=== PATIENT | female | born 1975 | race Caucasian/White ===

== ENCOUNTER 2016-07-20 16:01 | Emergency (ER) | payer MEDICARE, OTHER ==
[~2016-07-20] VITALS: Ht 162.6 cm; Wt 60.0 kg
[~2016-07-20 16:01] MED LIST: ADDE10 PO; CLON.1 PO; LEVO.05 PO; LORA-474 PO; LORA.5 PO; MIRTA15 PO; PRAZ1 PO; PROZ20CA11 PO
[2016-07-20 16:03] VITALS: BP 135/104; PULSE 118; RESP 20; TEMP 98; O2SAT 98
== END 2016-07-20 18:37 | disposition left against medical advice (07) ==
LOC: NED 16:01
DX: R68.89 Other general symptoms and signs (principal)
CPT/HCPCS: 99281

== ENCOUNTER 2016-08-08 10:37 | Emergency (ER) | payer MEDICARE ==
[~2016-08-08] VITALS: Ht 170.2 cm; Wt 56.8 kg
[2016-08-08 10:43] VITALS: BP 142/86; PULSE 91; RESP 20; TEMP 97.4; O2SAT 94
[2016-08-08] MEDS ORDERED: GABA600T PO (11:00)
--- NOTE | 2016-08-08 11:25 | PD ---
HPI Chief Complaint: Skin Problem Time Seen by Provider: 11:25 Travel History International Travel<30 days: No Contact w/Intl Traveler<30days: No Traveled to known affect area: No History of Present Illness HPI 41-year-old female with a history of PTSD and bipolar disorder presents to the emergency department for evaluation of pruritic skin lesions that she believes are bugs burrowed into her skin. She states this has been going on for about 2 weeks. States she has a few lesions on her ankles, feet, one on her back and in her ears. States she was seen at [facility] last week for same and prescribed antibiotics which she is unsure of the name, states she did finish the prescription but her symptoms persisted. She states over the past 2 days she has felt dizzy as though she can't keep her balance. Denies fever, chills, nausea, vomiting, weakness, chest pain, shortness of breath, cough or cold symptoms. She states her boyfriend had a flea infestation about 2 weeks ago when this all started and she thinks she has lyme disease as a result. Denies , last menstrual period 4 days ago. Denies drug use. Admits to occasional alcohol use. No other complaints. PFSH Past Medical History Depression: Yes Cancer: No Cardiovascular Problems: No Diabetes: No Headaches: Yes Psychiatric: Yes (PTSD, Depression) Seizures: No Tetanus Vaccination: < 5 Years Influenza Vaccination: No ?: Not LMP: 08/08/2016 : 1 Para: 0 Miscarriage: 1 Tubal Ligation: Yes Past Surgical History Other Surgery: Yes (MASTOID REPLACEMENT ) Social History Alcohol Use: Yes (OCCASIONALLY) Tobacco Use: Yes (1/2 PPD) Substance Use: No (DENIES PER PT) Allergies-Medications (Allergen,Severity, Reaction): Coded Allergies: Depakote (Verified Allergy, Severe, 07/20/16) [place] (Verified Allergy, Severe, 07/20/16) Reported Meds & Prescriptions Reported Meds & Active Scripts Active Reported Gabapentin 600 Mg Tab 600 Mg PO TID Review of Systems Except as stated in HPI: all other systems reviewed are Neg Physical Exam Narrative GENERAL: Well-nourished and well-developed female patient in no acute distress. SKIN: Warm and dry. Few scattered lesions on legs, arms and back. No erythema , warmth, discharge or drainage. There is a lesion on her umbilicus that has caused a little swelling of the tissue. HEAD: Normocephalic and atraumatic. EYES: No injection, drainage, or hyphema noted. PERRLA. EOMI. ENT: There is a lesion to the superior right pinna with crusting. There is a small bump to the right external auditory canal. Left ear and external auditory canal is within normal limits. Bilateral tympanic membranes with effusion, patient reports chronic otitis media. No nasal drainage noted. Oropharynx is clear. NECK: Supple and the trachea is midline. CARDIOVASCULAR: Regular rate and rhythm. RESPIRATORY: Breath sounds are equal bilaterally with no accessory muscle use, wheezing, rhonchi, or crackles. GASTROINTESTINAL: Abdomen is soft, non-tender, and nondistended. MUSCULOSKELETAL: No obvious deformities, swelling, cyanosis, or ecchymosis is present throughout the upper and lower extremities. Patient has full range of motion without any signs of neurovascular compromise. NEUROLOGICAL: Awake, alert, and oriented. Normal speech and gait. Cranial nerves are grossly intact. Data Data Last Documented VS Vital Signs Date Time Temp Pulse Resp B/P Pulse Ox O2 Delivery O2 Flow Rate FiO2 08/08/16 10:52 22 08/08/16 10:43 97.4 91 142/86 94 Orders Complete Blood Count With Diff (08/08/16 11:23) Comprehensive Metabolic Panel (08/08/16 11:23) Urinalysis - C+S If Indicated (08/08/16 11:23) Ed Urine Pregnancytest Poc (08/08/16 11:23) Electrocardiogram (08/08/16 11:23) Psych Screen (08/08/16 11:23) Drug Screen, Random Urine (08/08/16 11:23) Alcohol (Ethanol) (08/08/16 11:23) MDM Medical Decision Making Medical Screen Exam Complete: Yes Emergency Medical Condition: Yes Differential Diagnosis Insect bites versus substance abuse versus dehydration versus electrolyte abnormality versus psychosis Narrative Course 41-year-old female with a psychiatric history presents to the emergency department for evaluation of skin lesions scattered throughout her body and dizziness. Patient is afebrile, vital signs are stable. She is very concerned that people think she is "crazy" and she is imagining the bugs. She is not suicidal or homicidal though I do think this may be in large part psychological and therefore a psych screen is ordered. IV access is obtained, labs have been drawn and sent. These skin lesions do not appear to be cellulitic or tick bites. I did explain to the patient that fleas do not cause Lyme disease and that has she has not had a tick on her and is not at risk for having a tick on her that it is highly unlikely she has Lyme disease. The patient did not wish to stay for any further testing, she was very fixated on wanting to be tested for Lyme disease no matter how much I explained to her the low likelihood of her having this disease and that we do not test for it in the emergency department. We did draw blood work but the patient left AGAINST MEDICAL ADVICE before obtaining urine or any EKG or psych screen. She is not a harm to herself or anyone else and therefore I did not feel she met Trevino act criteria. AMA: The risks of leaving against medical advice without further evaluation treatment were discussed with the patient. These risks include cardiac dysfunction, cardiac dysrhythmia, possible heart attack, possible stroke or . The patient indicated understanding of these risks and appeared to have the capacity to make this decision. Diagnosis Primary Impression: Left against medical advice Additional Impression: Skin lesions Disposition: 07 AGAINST MEDICAL ADVICE Irina Krueger Aug 08, 2016 11:25
[2016-08-08 12:04] LABS: AUTOMATED NEUTROPHIL # 4.6 TH/MM3 (1.8-7.7); BASOPHIL % 0.7 % (0.0-2.0); EOSINOPHIL % 0.7 % (0.0-4.0); HEMATOCRIT 41.2 % (35.0-46.0); HEMO FLAGS DIFF FINAL; LYMPH % 24.7 % (9.0-44.0); LYMPHOCYTE # 1.7 TH/MM3 (1.0-4.8); MEAN CELL VOLUME 91.2 FL (80.0-100.0); MEAN CORPUSCULAR HEMOGLOBIN 29.6 PG (27.0-34.0); MEAN CORPUSCULAR HGB CONC 32.5 % (32.0-36.0); MONO % 7.6 % (0.0-8.0); NEUT % 66.3 % (16.0-70.0); PLATELET COUNT 294 TH/MM3 (150-450); RED BLOOD COUNT 4.51 MIL/MM3 (4.00-5.30); RED CELL DISTRIBUTION WIDTH 14.9 % (11.6-17.2); WHITE BLOOD COUNT 6.9 TH/MM3 (4.0-11.0)
[2016-08-08 12:28] LABS: ALKALINE PHOSPHATASE 81 U/L (45-117); ALT (GPT) 31 U/L (10-53); ANION GAP 8 MEQ/L (5-15); AST (GOT) 23 U/L (15-37); BICARBONATE 25.9 MEQ/L (21.0-32.0); BLOOD UREA NITROGEN 9 MG/DL (7-18); CHLORIDE 104 MEQ/L (98-107); GLOMERULAR FILTRATION RATE 71 ML/MIN (>89); POTASSIUM 3.8 MEQ/L (3.5-5.1); SODIUM (NA) 138 MEQ/L (136-145); TOTAL BILIRUBIN ADULT 0.2 MG/DL (0.2-1.0)
== END 2016-08-08 11:59 | disposition left against medical advice (07) ==
LOC: NEPA 10:37
DX: L98.9 Disorder of the skin and subcutaneous tissue, unspecified (principal); R42 Dizziness and giddiness
CPT/HCPCS: 80053; 80320; 85025; 99283

== ENCOUNTER 2016-09-03 14:08 | Emergency (ER) | payer MEDICARE ==
[~2016-09-03] VITALS: Ht 170.2 cm; Wt 59.0 kg
[~2016-09-03 14:08] MED LIST changes: -ADDE10 PO; -CLON.1 PO; +GABA600T PO; -LEVO.05 PO; -LORA-474 PO; -LORA.5 PO; -MIRTA15 PO; -PRAZ1 PO; -PROZ20CA11 PO
[2016-09-03 14:09] VITALS: BP 137/72; PULSE 96; RESP 20; TEMP 97.8; O2SAT 97
--- NOTE | 2016-09-03 15:25 | PD ---
HPI Chief Complaint: Injury Time Seen by Provider: 15:21 Travel History International Travel<30 days: No Contact w/Intl Traveler<30days: No Traveled to known affect area: No History of Present Illness HPI 41-year-old female presents to the emergency department for evaluation of left ankle and left foot pain that occurred yesterday. She states she was standing at the top of 3 steps and 70 else pulling on her right leg. She states that because of this, her left leg buckled causing her left ankle and knee pain. Patient has been ambulatory since this occurred. She does report a history of fibromyalgia and takes gabapentin. She states that she had leftover Lortab at her house that she took 2 of these this morning at 5 AM. Patient is requesting further narcotics at this time. Patient denies any head injury or LOC. She denies any other complaints. PFSH Past Medical History Hx Anticoagulant Therapy: No Depression: Yes Cancer: No Cardiovascular Problems: No Chemotherapy: No Cerebrovascular Accident: No Diabetes: No Headaches: Yes Psychiatric: Yes (PTSD, Depression) Respiratory: No Seizures: No ?: Unknown LMP: 07/15/16 : 1 Para: 0 Miscarriage: 1 Tubal Ligation: Yes Past Surgical History Hysterectomy: No Other Surgery: Yes (MASTOID REPLACEMENT ) Social History Alcohol Use: Yes (OCCASIONALLY) Tobacco Use: Yes (1/2 PPD) Substance Use: No (DENIES PER PT) Allergies-Medications (Allergen,Severity, Reaction): Coded Allergies: Depakote (Verified Allergy, Severe, 09/03/16) [place] (Verified Allergy, Severe, 09/03/16) Reported Meds & Prescriptions Reported Meds & Active Scripts Active Reported Gabapentin 600 Mg Tab 600 Mg PO TID Review of Systems Except as stated in HPI: all other systems reviewed are Neg Physical Exam Narrative GENERAL: Well-developed well-nourished female patient, afebrile. SKIN: Warm and dry HEAD: Normocephalic. Atraumatic. EYES: No scleral icterus. No injection or drainage. NECK: Supple, trachea midline. No JVD or lymphadenopathy. CARDIOVASCULAR: Regular rate and rhythm without murmurs, gallops, or rubs. Left pedal pulses 2+. RESPIRATORY: Breath sounds equal bilaterally. No accessory muscle use. Lungs sounds are clear to auscultation. GASTROINTESTINAL: Abdomen soft, non-tender, nondistended. MUSCULOSKELETAL: No cyanosis, or edema. Patient has tenderness over the entire left ankle and entire left knee. She has reduced range of motion due to pain. She has full sensation to distal left lower extremity. Negative Hill's test. Negative Karen's test. BACK: Nontender without obvious deformity. No CVA tenderness. Data Data Last Documented VS Vital Signs Date Time Temp Pulse Resp B/P Pulse Ox O2 Delivery O2 Flow Rate FiO2 09/03/16 14:09 97.8 96 20 137/72 97 Room Air Orders Ankle, Complete ([id number]) (09/03/16 ) Knee, Complete (4vws) (09/03/16 ) Ibuprofen (Motrin) (09/03/16 15:30) MDM Medical Decision Making Medical Screen Exam Complete: Yes Emergency Medical Condition: Yes Medical Record Reviewed: Yes Interpretation(s) x-ray left knee - CONCLUSION: Joint effusion with possible early changes of osteoarthritis. No acute bony abnormality. x-ray left ankle - CONCLUSION: 1. No acute bony abnormality. Differential Diagnosis Fracture versus sprain versus contusion Narrative Course 41-year-old female presents to the emergency department for evaluation of left ankle and left knee pain after injury yesterday. Patient is requesting narcotics after taking 2 left over Lortab this morning. Patient is given ibuprofen 800 mg by mouth. X-ray of the left ankle and left knee are ordered and pending. X-ray of the left knee shows a joint effusion, no acute bony abnormality. X- ray of the left ankle shows no acute bony abnormality. Patient is given Leonel bandage her ankle and knee. She is also given crutches. She is instructed to follow-up with an orthopedist if pain continues or worsens. Patient is agreeable to this plan. Diagnosis Primary Impression: Left ankle sprain Qualified Code: S93.402A - Sprain of left ankle, unspecified ligament, initial encounter Additional Impression: Left knee sprain Qualified Code: S83.92XA - Sprain of left knee, unspecified ligament, initial encounter Referrals: Primary Care Physician call for appointment Patient Instructions: Ankle Sprain (ED), General Instructions, Knee Sprain (ED) Additional Instructions: Take ibuprofen as directed as needed with food for pain. Wear Leonel bandage as needed for support. Crutches as needed. Follow-up with an orthopedist if pain continues or worsens. Return to the emergency department for any acute worsening of symptoms. Med/Other Pt SpecificInfo: Prescription(s) given Scripts Ibuprofen 800 Mg [id number] Mg PO TID PRN (PAIN SCALE 1 TO 10) #21 TAB Ref 0 Prov:Seema Hayes 09/03/16 Disposition: 01 DISCHARGE HOME Condition: Stable Seema Hayes Sep 03, 2016 15:25
[2016-09-03] MEDS ORDERED: IBUPROFEN 800 MG TAB PO ONE (15:30)
--- NOTE | 2016-09-03 16:08 | RADRPT ---
EXAM DATE/TIME: 09/03/2016 15:48 [facility] COMPARISON: No previous studies available for comparison. INDICATIONS : Left knee pain. MEDICAL HISTORY : None. SURGICAL HISTORY : None. ENCOUNTER: Initial ACUITY: 1 day PAIN SCORE: 0/10 LOCATION: Left knee FINDINGS: There is a small joint effusion. Early changes of osteoarthritis. No acute bony abnormality. CONCLUSION: Joint effusion with possible early changes of osteoarthritis. No acute bony abnormality. Brad Cespedes MD on September 03, 2016 at 16:05 Board Certified Radiologist. This report was verified electronically.
--- NOTE | 2016-09-03 16:09 | RADRPT ---
EXAM DATE/TIME: 09/03/2016 15:50 [facility] COMPARISON: No previous studies available for comparison. INDICATIONS : Left ankle pain. MEDICAL HISTORY : None. SURGICAL HISTORY : None. ENCOUNTER: Initial ACUITY: 1 day PAIN SCORE: 0/10 LOCATION: Left ankle FINDINGS: Three view exam was performed of the left ankle. The bony structures are in normal alignment. No ev idence of fracture, dislocation, or soft tissue swelling. The ankle mortise is intact. No radiopaqu e foreign bodies are seen. Bony mineralization is normal. CONCLUSION: 1. No acute bony abnormality. Brad Cespedes MD on September 03, 2016 at 16:06 Board Certified Radiologist. This report was verified electronically.
[2016-09-03] MEDS ORDERED: IBUP800T23 PO (16:24)
== END 2016-09-03 16:57 | disposition home or self-care (01) ==
LOC: NEPB 14:08
DX: S93.402A Sprain of unspecified ligament of left ankle, initial encounter (principal); M79.7 Fibromyalgia; F17.210 Nicotine dependence, cigarettes, uncomplicated; S83.92XA Sprain of unspecified site of left knee, initial encounter; X58.XXXA Exposure to other specified factors, initial encounter
CPT/HCPCS: 73564; 73610; 99283; E0113

== ENCOUNTER 2016-12-22 07:55 | Emergency (ER) | payer MEDICARE, OTHER ==
[~2016-12-22 07:55] MED LIST changes: +IBUP800T23 PO
--- NOTE | 2016-12-22 08:13 | PD ---
HPI Chief Complaint: medical clearance Time Seen by Provider: 08:02 Travel History International Travel<30 days: No Contact w/Intl Traveler<30days: No Traveled to known affect area: No History of Present Illness HPI This patient is brought in by police records clerk to be evaluated. Patient apparently was found walking around and shallow water. She says she was looking for frogs. She denies intentionally jumping off the bridge to hurt herself. No one witnessed her prior to that. She says she feels fine and does not want to be here. She denies suicidal ideation. She had a warned for her so police have arrested her going to take her to custodial when she is medically clear. Symptom is a nonexistent. She is very irritable and refuses most questions and refuses any medical testing. She denies alcohol or drug use PFSH Past Medical History Hx Anticoagulant Therapy: No Depression: Yes Cancer: No Cardiovascular Problems: No Chemotherapy: No Cerebrovascular Accident: No Diabetes: No Headaches: Yes Psychiatric: Yes (PTSD, Depression) Respiratory: No Seizures: No : 1 Para: 0 Miscarriage: 1 Tubal Ligation: Yes Past Surgical History Hysterectomy: No Other Surgery: Yes (MASTOID REPLACEMENT ) Social History Alcohol Use: Yes (OCCASIONALLY) Tobacco Use: Yes (1/2 PPD) Substance Use: No (DENIES PER PT) Allergies-Medications (Allergen,Severity, Reaction): Coded Allergies: Depakote (Verified Allergy, Severe, 09/03/16) [place] (Verified Allergy, Severe, 09/03/16) Reported Meds & Prescriptions Reported Meds & Active Scripts Active Ibuprofen 800 Mg Tab 800 Mg PO TID PRN Reported Gabapentin 600 Mg Tab 600 Mg PO TID Review of Systems General / Constitutional: No: Fever Eyes: No: Visual changes HENT: No: Headaches Cardiovascular: No: Chest Pain or Discomfort Respiratory: No: Shortness of Breath Gastrointestinal: No: Abdominal Pain Genitourinary: No: Dysuria Musculoskeletal: No: Pain Skin: No Rash Neurologic: No: Weakness Psychiatric: No: Depression Endocrine: No: Polydipsia Hematologic/Lymphatic: No: Easy Bruising Physical Exam Narrative GENERAL: Thin well-developed patient who looks annoyed argumentative . SKIN: Focused skin assessment reveals no rash and nodules. Skin is Warm and dry. HEAD: Atraumatic. Normocephalic. EYES: Pupils equal and round. No scleral icterus. No injection or drainage. ENT: No nasal bleeding or discharge. Mucous membranes pink and moist. NECK: Trachea midline. No JVD. CARDIOVASCULAR: Regular rate and rhythm. No murmur appreciated. RESPIRATORY: No accessory muscle use. Clear to auscultation. Breath sounds equal bilaterally. GASTROINTESTINAL: Abdomen soft, non-tender, nondistended. Hepatic and splenic margins not palpable. MUSCULOSKELETAL: No obvious deformities. No clubbing. No cyanosis. No edema. Abrasions to left lower leg without bony tenderness NEUROLOGICAL: Awake and alert. No obvious cranial nerve deficits. Motor grossly within normal limits. Normal speech. PSYCHIATRIC: Aggravated/hostile mood and affect; insight and judgment questionable MDM Medical Decision Making Medical Screen Exam Complete: Yes Emergency Medical Condition: Yes Medical Record Reviewed: Yes Differential Diagnosis Abrasions, personality disorder, contusion Narrative Course I have reviewed the patient's electronic medical record. Patient refuses any testing and has no complaint. She denies any suicidal ideation or hallucination Patient was taken to custodial by police Diagnosis Primary Impression: Medical clearance for incarceration Additional Instructions: taken to custodial Disposition: [address] LAW ENFORCEMNT Condition: Stable Donnell Robin MD Dec 22, 2016 08:13
== END 2016-12-22 08:16 ==
LOC: NEPC 07:55
DX: F43.10 Post-traumatic stress disorder, unspecified (principal); F17.200 Nicotine dependence, unspecified, uncomplicated; Z79.1 Long term (current) use of non-steroidal anti-inflammatories (NSAID); Z79.899 Other long term (current) drug therapy; Z88.5 Allergy status to narcotic agent
CPT/HCPCS: 99281

== ENCOUNTER 2017-01-15 11:06 | Emergency (ER) | payer MEDICARE, OTHER ==
[~2017-01-15] VITALS: Ht 170.2 cm; Wt 57.0 kg
[2017-01-15 11:07] VITALS: BP 137/99; PULSE 101; RESP 15; TEMP 98.2; O2SAT 98
--- NOTE | 2017-01-15 12:07 | PD ---
HPI Chief Complaint: Medical Clearance Time Seen by Provider: 12:05 Travel History International Travel<30 days: No Contact w/Intl Traveler<30days: No Traveled to known affect area: No History of Present Illness HPI 41-year-old female that presents to the ED for eval a psychiatric evaluation. Patient reports that she comes here voluntarily for evaluation of this. Per patient she's been off her medications for sometime and she feels like she needs to be back on them. She states that she has a history of bipolar disorder. Patient was seen here last month for evaluation of similar but at the time she was going to longterm and she declined any treatment. She denies any other medical issues. No suicidal or homicidal ideation. She does tell me that she does have a history of substance abuse and unclear she's been using recently. She denies any fevers chills or sweats. No chest pain or shortness of breath. No head injury. She states that she has been walking a lot and she has abrasions on her skin everywhere, but especially on the legs. PFSH Past Medical History Hx Anticoagulant Therapy: No ADD: Yes Anxiety: Yes Depression: Yes Cancer: No Cardiovascular Problems: No Chemotherapy: No Cerebrovascular Accident: No Diabetes: No Headaches: Yes Psychiatric: Yes (ADD, depression, anxiety, anger management) Respiratory: No Seizures: No Tetanus Vaccination: Unknown ?: Not LMP: 10/2016 : 1 Para: 0 Miscarriage: 1 Tubal Ligation: Yes Past Surgical History Ear Surgery: Yes Hysterectomy: No Other Surgery: Yes (MASTOID REPLACEMENT ) Social History Alcohol Use: Yes Tobacco Use: Yes Substance Use: Yes Allergies-Medications (Allergen,Severity, Reaction): Coded Allergies: Depakote (Verified Allergy, Severe, 01/15/17) [place] (Verified Allergy, Severe, 01/15/17) Cipro (Verified Allergy, Unknown, 01/15/17) Reported Meds & Prescriptions Reported Meds & Active Scripts Active No Active Prescriptions or Reported Medications Review of Systems Except as stated in HPI: all other systems reviewed are Neg Physical Exam Narrative GENERAL: SKIN: Warm and dry. HEAD: Atraumatic. Normocephalic. EYES: Pupils equal and round. No scleral icterus. No injection or drainage. ENT: No nasal bleeding or discharge. Mucous membranes pink and moist. Tongue is midline. No uvula deviation. NECK: Trachea midline. No JVD. CARDIOVASCULAR: Regular rate and rhythm. No murmurs, S3, S4. RESPIRATORY: No accessory muscle use. Clear to auscultation. Breath sounds equal bilaterally. GASTROINTESTINAL: Abdomen soft, non-tender, nondistended. Hepatic and splenic margins not palpable. MUSCULOSKELETAL: Extremities without clubbing, cyanosis, or edema. No obvious deformities. Full range of motion of the upper and lower extremities bilaterally. 2+ pulses bilaterally. NEUROLOGICAL: Awake and alert. No obvious cranial nerve deficits. Motor grossly within normal limits. Five out of 5 muscle strength in the arms and legs. Normal speech. PSYCHIATRIC: Appropriate mood and affect; insight and judgment normal. Data Data Last Documented VS Vital Signs Date Time Temp Pulse Resp B/P Pulse Ox O2 Delivery O2 Flow Rate FiO2 01/15/17 11:16 18 01/15/17 11:07 98.2 101 137/99 98 Orders Complete Blood Count With Diff (01/15/17 11:12) Comprehensive Metabolic Panel (01/15/17 11:12) Psych Screen (01/15/17 11:12) Drug Screen, Random Urine (01/15/17 11:12) Alcohol (Ethanol) (01/15/17 11:12) Labs Laboratory Tests Test 01/15/17 11:45 White Blood Count 9.5 TH/MM3 Red Blood Count 4.38 MIL/MM3 Hemoglobin 13.5 GM/DL Hematocrit 41.0 % Mean Corpuscular Volume 93.6 FL Mean Corpuscular Hemoglobin 30.8 PG Mean Corpuscular Hemoglobin 32.9 % Concent Red Cell Distribution Width 16.6 % Platelet Count 291 TH/MM3 Mean Platelet Volume 7.4 FL Neutrophils (%) (Auto) 64.8 % Lymphocytes (%) (Auto) 25.6 % Monocytes (%) (Auto) 7.9 % Eosinophils (%) (Auto) 1.1 % Basophils (%) (Auto) 0.6 % Neutrophils # (Auto) 6.2 TH/MM3 Lymphocytes # (Auto) 2.4 TH/MM3 Monocytes # (Auto) 0.8 TH/MM3 Eosinophils # (Auto) 0.1 TH/MM3 Basophils # (Auto) 0.1 TH/MM3 CBC Comment DIFF FINAL Differential Comment Sodium Level 144 MEQ/L Potassium Level 3.6 MEQ/L Chloride Level 108 MEQ/L Carbon Dioxide Level 27.3 MEQ/L Anion Gap 9 MEQ/L Blood Urea Nitrogen 12 MG/DL Creatinine 0.78 MG/DL Estimat Glomerular Filtration 82 ML/MIN Rate Random Glucose 93 MG/DL Calcium Level 9.1 MG/DL Total Bilirubin 0.8 MG/DL Aspartate Amino Transf 13 U/L (AST/SGOT) Alanine Aminotransferase 21 U/L (ALT/SGPT) Alkaline Phosphatase 79 U/L Total Protein 7.0 GM/DL Albumin 3.8 GM/DL Urine Opiates Screen NEG Urine Barbiturates Screen NEG Urine Amphetamines Screen POS Urine Benzodiazepines Screen NEG Urine Cocaine Screen NEG Urine Cannabinoids Screen NEG Ethyl Alcohol Level LESS THAN 3 MG/DL MDM Medical Decision Making Medical Screen Exam Complete: Yes Emergency Medical Condition: Yes Medical Record Reviewed: Yes Interpretation(s) CBC & BMP Diagram 01/15/17 11:45 LFTS WNL tox positive for amphetamines Differential Diagnosis Depression versus suicidal ideation versus anxiety versus adjustment disorder versus mood disorder versus bipolar disorder versus schizophrenia versus paranoid disorder versus psychosis versus substance abuse versus alcohol abuse versus alcohol induced psychosis versus homicidality addition versus cutting versus personality disorder Narrative Course 41-year-old female that presents to the ED for evaluation of psych. Patient was properly examined and was found to have signs and symptoms consistent with psychiatric illness. No sign of acute medical distress. Labs will be drawn. Patient will be medically clear. Okay to be seen by psych. Mental health screening was discussed with the patient. Diagnosis Primary Impression: Mood disorder Scripts No Active Prescriptions or Reported Meds Kyler Uribe Jan 15, 2017 12:07
[2017-01-15 12:14] LABS: AUTOMATED NEUTROPHIL # 6.2 TH/MM3 (1.8-7.7); BASOPHIL # 0.1 TH/MM3 (0-0.2); BASOPHIL % 0.6 % (0.0-2.0); EOSINOPHIL # 0.1 TH/MM3 (0-0.4); EOSINOPHIL % 1.1 % (0.0-4.0); HEMO FLAGS DIFF FINAL; LYMPH % 25.6 % (9.0-44.0); LYMPHOCYTE # 2.4 TH/MM3 (1.0-4.8); MEAN CELL VOLUME 93.6 FL (80.0-100.0); MEAN CORPUSCULAR HEMOGLOBIN 30.8 PG (27.0-34.0); MEAN CORPUSCULAR HGB CONC 32.9 % (32.0-36.0); MONO % 7.9 % (0.0-8.0); NEUT % 64.8 % (16.0-70.0); PLATELET COUNT 291 TH/MM3 (150-450); RED BLOOD COUNT 4.38 MIL/MM3 (4.00-5.30); RED CELL DISTRIBUTION WIDTH 16.6 % (11.6-17.2); WHITE BLOOD COUNT 9.5 TH/MM3 (4.0-11.0)
[2017-01-15 12:24] LABS: AMPHETAMINE, URINE POS (NEG); BARBITURATES, URINE NEG (NEG); COCAINE, URINE NEG (NEG)
[2017-01-15 12:35] LABS: ANION GAP 9 MEQ/L (5-15); AST (GOT) 13 U/L (15-37); BICARBONATE 27.3 MEQ/L (21.0-32.0); BLOOD UREA NITROGEN 12 MG/DL (7-18); CHLORIDE 108 MEQ/L (98-107); GLOMERULAR FILTRATION RATE 82 ML/MIN (>89); POTASSIUM 3.6 MEQ/L (3.5-5.1); SODIUM (NA) 144 MEQ/L (136-145)
[2017-01-15 12:43] LABS: ALKALINE PHOSPHATASE 79 U/L (45-117); ALT (GPT) 21 U/L (10-53); TOTAL BILIRUBIN ADULT 0.8 MG/DL (0.2-1.0)
== END 2017-01-15 16:58 | disposition home or self-care (01) ==
LOC: NEPC 11:06
DX: F39 Unspecified mood [affective] disorder (principal); Z79.899 Other long term (current) drug therapy
CPT/HCPCS: 80053; 80307; 85025; 99283

== ENCOUNTER 2017-01-16 18:28 | Inpatient (IN) | payer MEDICARE, OTHER ==
[~2017-01-16] VITALS: Ht 170.2 cm; Wt 52.9 kg
[2017-01-16 18:55] VITALS: BP 132/86; PULSE 92; RESP 18; TEMP 97.8; O2SAT 100
--- NOTE | 2017-01-16 19:25 | PD ---
HPI Chief Complaint: Suicide Ideation/Attempt Time Seen by Provider: 19:20 Travel History International Travel<30 days: No Contact w/Intl Traveler<30days: No Traveled to known affect area: No History of Present Illness HPI Patient comes back to the emergency Department under [place] by police for suicidal ideations. Patient was reportedly found in the street by some bystander said she sat there to intentionally harm her self per Trev[place] act. Patient is not wanting to answer questions, but states she does not want to hurt anyone else intentionally. Patient is being very uncooperative thus limiting H&P at this time. PFSH Past Medical History Hx Anticoagulant Therapy: No ADD: Yes Anxiety: Yes Depression: Yes Cancer: No Cardiovascular Problems: No Chemotherapy: No Cerebrovascular Accident: No Diabetes: No Headaches: Yes Medical other: Yes (HISTORY OBTAINED FROM NOTES, PT UNRELIABLE) Psychiatric: Yes (ADD, depression, anxiety, anger management) Respiratory: No Immunizations Current: Yes Seizures: No ?: Unknown : 1 Para: 0 Miscarriage: 1 Tubal Ligation: Yes Past Surgical History Ear Surgery: Yes Hysterectomy: No Other Surgery: Yes (MASTOID REPLACEMENT ) Social History Alcohol Use: Yes (DENIES) Tobacco Use: Yes (DENIES) Substance Use: Yes (DENIES) Allergies-Medications (Allergen,Severity, Reaction): Coded Allergies: Depakote (Verified Allergy, Severe, 01/15/17) [place] (Verified Allergy, Severe, 01/15/17) Cipro (Verified Allergy, Unknown, 01/15/17) Reported Meds & Prescriptions Reported Meds & Active Scripts Active Active Prescriptions or Reported Medications Unobtainable Review of Systems ROS Limitations: Uncooperative Except as stated in HPI: all other systems reviewed are Neg Physical Exam Exam Limitations: Uncooperative Narrative GENERAL: Well-developed, well nourished, in no acute distress, and non-ill appearing. SKIN: Focused skin assessment warm and dry. HEAD: Atraumatic. Normocephalic. EYES: Pupils equal and round. EOMI. No scleral icterus. No injection or drainage. ENT: No nasal bleeding or discharge. Mucous membranes pink and moist. NECK: Trachea midline. Supple. No nuclear rigidity. RESPIRATORY: No accessory muscle use. No respiratory distress. MUSCULOSKELETAL: No obvious deformities. No clubbing. No cyanosis. No edema. Full range of motion. NEUROLOGICAL: Awake and alert. No obvious cranial nerve deficits. Motor grossly within normal limits. Normal speech. PSYCHIATRIC: Uncooperative. Data Data Last Documented VS Vital Signs Date Time Temp Pulse Resp B/P Pulse Ox O2 Delivery O2 Flow Rate FiO2 01/17/17 07:07 97.8 70 14 110/80 100 Room Air Orders Diet Regular Basic (01/17/17 Breakfast) Complete Blood Count With Diff (01/17/17 13:02) Comprehensive Metabolic Panel (01/17/17 13:02) Urinalysis - C+S If Indicated (01/17/17 13:02) Ed Urine Pregnancytest Poc (01/17/17 13:02) Drug Screen, Random Urine (01/17/17 13:02) Alcohol (Ethanol) (01/17/17 13:02) Salicylates (Aspirin) (01/17/17 13:02) Tylenol (Acetaminophen) (01/17/17 13:02) MDM Medical Decision Making Medical Screen Exam Complete: Yes Emergency Medical Condition: Yes Medical Record Reviewed: Yes Differential Diagnosis Homicidal, suicidal, depression, nonspecific mood disorder, other Narrative Course Patient was seen and examined. Labs were reviewed from yesterday and I do not see need to repeat them at this point in time. Patient medically cleared for further treatment and evaluation by psych. Final disposition per psych. 01/17/17 1300 is asked by personnel research psychologistGENE Stout to order labs on patient. Lab orders were placed. Diagnosis Primary Impression: Medical clearance for psychiatric admission Scripts Unable to Obtain Active Prescriptions or Reported Meds Condition: Stable Andrew Perez Jan 16, 2017 19:25
[2017-01-17 02:21] VITALS: BP 118/85; PULSE 62; RESP 14; TEMP 97.8; O2SAT 100
[2017-01-17 07:07] VITALS: BP 110/80; PULSE 70; RESP 14; TEMP 97.8; O2SAT 100
[2017-01-17 14:48] LABS: AUTOMATED NEUTROPHIL # 6.2 TH/MM3 (1.8-7.7); BASOPHIL # 0.1 TH/MM3 (0-0.2); BASOPHIL % 0.6 % (0.0-2.0); EOSINOPHIL # 0.5 TH/MM3 (0-0.4); EOSINOPHIL % 5.3 % (0.0-4.0); HEMATOCRIT 42.2 % (35.0-46.0); HEMO FLAGS DIFF FINAL; LYMPH % 20.2 % (9.0-44.0); LYMPHOCYTE # 1.9 TH/MM3 (1.0-4.8); MEAN CELL VOLUME 94.4 FL (80.0-100.0); MEAN CORPUSCULAR HEMOGLOBIN 30.9 PG (27.0-34.0); MEAN CORPUSCULAR HGB CONC 32.7 % (32.0-36.0); MONO % 8.3 % (0.0-8.0); NEUT % 65.6 % (16.0-70.0); PLATELET COUNT 284 TH/MM3 (150-450); RED BLOOD COUNT 4.47 MIL/MM3 (4.00-5.30); RED CELL DISTRIBUTION WIDTH 16.9 % (11.6-17.2); WHITE BLOOD COUNT 9.5 TH/MM3 (4.0-11.0)
[2017-01-17 14:54] LABS: BLOOD, URINE NEG (NEG); COMMENT (UR) CULT NOT INDICATED; CULTURE IF INDICATED CULT NOT INDICATED; GLUCOSE,URINE NEG (NEG); KETONE, URINE NEG (NEG); NITRITE,URINE NEG (NEG); PH, URINE 6.5 (5.0-8.5); SQUAMOUS EPITHELIAL CELL URINE 6 /hpf (0-5); URINE COLOR YELLOW (YELLW/STRAW)
[2017-01-17 14:57] LABS: AMPHETAMINE, URINE NEG (NEG); BARBITURATES, URINE NEG (NEG); COCAINE, URINE NEG (NEG)
[2017-01-17 15:20] LABS: ALT (GPT) 19 U/L (10-53); ANION GAP 5 MEQ/L (5-15); AST (GOT) 12 U/L (15-37); BICARBONATE 32.1 MEQ/L (21.0-32.0); CHLORIDE 105 MEQ/L (98-107); GLOMERULAR FILTRATION RATE 86 ML/MIN (>89); POTASSIUM 4.1 MEQ/L (3.5-5.1); SODIUM (NA) 142 MEQ/L (136-145)
[2017-01-17 15:23] LABS: ACETAMINOPHEN LESS THAN 2.0 MCG/ML (10.0-30.0); ALKALINE PHOSPHATASE 73 U/L (45-117); BLOOD UREA NITROGEN 12 MG/DL (7-18); TOTAL BILIRUBIN ADULT 0.3 MG/DL (0.2-1.0)
[2017-01-17] MEDS ORDERED: PRAZ5CAP PO (15:47)
[2017-01-17] MEDS ORDERED: WELLTAB39 PO (15:49)
[2017-01-17] MEDS ORDERED: VIST50CA PO (15:52)
[2017-01-17] MEDS ORDERED: LEVO50TA4 PO (15:52)
[2017-01-17] MEDS ORDERED: NEUR300C PO (15:52)
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
[2017-01-17] MEDS ORDERED: ALUMINUM/MAGNESIUM/SIMETH 30 ML CUP PO PRN (16:45)
[2017-01-17] MEDS ORDERED: MAGNESIUM HYDROXIDE SUSP 30 ML CUP PO PRN (16:45)
[2017-01-17 20:45] VITALS: BP 160/96; PULSE 73; RESP 18; TEMP 98.3; O2SAT 100
[2017-01-18 06:28] VITALS: BP 121/67; PULSE 64; RESP 16; TEMP 98.7; O2SAT 97
[2017-01-18 09:02] LABS: ANION GAP 6 MEQ/L (5-15); BICARBONATE 29.4 MEQ/L (21.0-32.0); BLOOD UREA NITROGEN 16 MG/DL (7-18); CHLORIDE 104 MEQ/L (98-107); GLOMERULAR FILTRATION RATE 93 ML/MIN (>89); POTASSIUM 4.1 MEQ/L (3.5-5.1); SODIUM (NA) 139 MEQ/L (136-145)
[2017-01-18 09:06] LABS: LDL CHOLESTEROL 67 MG/DL (0-99)
--- NOTE | 2017-01-18 14:02 | PD.CONS ---
HPI Service [facility] Consult Requested By Reason for Consult medical management Primary Care Physician No Primary Care Physician Diagnoses: History of Present Illness patient is a 41 y/o female with history of bipolar disorder, ADD, was admitted to the psych unit under [place] act for suicidal ideation.reportedly she was reportedly found in the street by some bystander said she sat there to intentionally harm herself. patient is not a good historian and most of the information was obtained from the medical record. at the time of my evaluation she was resting comfortably with no distress, denies chest pain, sob, dizziness, nausea. Review of Systems Constitutional: DENIES: Fever, Weight loss, Chills, Night Sweats Eyes: DENIES: Blurred vision, Diplopia, Vision loss, Double Vision Ears, nose, mouth, throat: DENIES: Tinnitus, Vertigo, Throat pain, Epistaxis Respiratory: DENIES: Apneas, Cough, Snoring, Wheezing, Hemoptysis, Sputum production, Shortness of breath Cardiovascular: DENIES: Chest pain, Palpitations, Syncope, Dyspnea on Exertion , PND, Lower Extremity Edema, Orthopnea, Claudication Gastrointestinal: DENIES: Abdominal pain, Black stools, Bloody stools, Constipation, Diarrhea, Nausea, Vomiting, Difficulty Swallowing, Anorexia Genitourinary: DENIES: Urinary frequency, Urgency, Hematuria, Dysuria Musculoskeletal: DENIES: Joint pain, Muscle aches, Stiffness, Joint Swelling Integumentary: DENIES: Rash Neurologic: DENIES: Abnormal gait, Headache, Localized weakness, Paresthesias, Seizures, Speech Problems, Tremor, Poor Balance Psychiatric: COMPLAINS OF: Suicidal Ideation, DENIES: Anxiety, Confusion, Mood changes, Depression, Hallucinations, Agitation, Homicidal Ideation, Delusions Past Family Social History Allergies: Coded Allergies: Depakote (Verified Allergy, Severe, 01/15/17) [place] (Verified Allergy, Severe, 01/15/17) Cipro (Verified Allergy, Unknown, 01/15/17) Past Medical History hypertension? hypothyroidism? Past Surgical History mastoid replacement ear surgery Reported Medications prazozin levothyroine neurontin Wellbutrin Vistaril Active Ordered Medications Current Medications Acetaminophen (Tylenol) 650 mg Q4H PRN PO Pain 1-5 or Temp >101F; Start at 16:45 Magnesium Hydroxide (Milk Of Magnesia Liq) 30 ml DAILY PRN PO CONSTIPATION; Start 01/17/17 at 16:45 Al Hydrox/Mg Hydrox/Simethicone (Mag-Al Plus Susp Liq) 30 ml Q6H PRN PO DYSPEPSIA; Start 01/17/17 at 16:45 Diphenhydramine HCl (Benadryl) 50 mg Q6H PRN PO For mild anxiety and/or EPS; Start 01/18/17 at 13:15 Diphenhydramine HCl (Benadryl) 50 mg HS PRN PO INSOMNIA; Start 01/18/17 at 13:15 Quetiapine Fumarate (SEROquel) 50 mg HS PO ; Start 01/18/17 at 21:00 Bupropion HCl (Wellbutrin) 100 mg Q12HR PO ; Start 01/18/17 at 13:15 Social History no smoking/drinking/illicit drugs per the ER. Physical Exam Vital Signs Vital Signs Date Time Temp Pulse Resp B/P Pulse Ox O2 Delivery O2 Flow Rate FiO2 01/18/17 06:28 98.7 64 16 121/67 97 01/17/17 20:45 98.3 73 18 160/96 100 Physical Exam GENERAL: This is a well-nourished, well-developed patient, in no apparent distress. SKIN: No rashes, ecchymoses or lesions. Cool and dry. HEAD: Atraumatic. Normocephalic. No temporal or scalp tenderness. EYES: Pupils equal round and reactive. Extraocular motions intact. No scleral icterus. No injection or drainage. ENT: Nose without bleeding, purulent drainage or septal hematoma. Throat without erythema, tonsillar hypertrophy or exudate. Uvula midline. Airway patent. NECK: Trachea midline. No JVD or lymphadenopathy. Supple, nontender, no meningeal signs. CARDIOVASCULAR: Regular rate and rhythm without murmurs, gallops, or rubs. RESPIRATORY: Clear to auscultation. Breath sounds equal bilaterally. No wheezes , rales, or rhonchi. GASTROINTESTINAL: Abdomen soft, non-tender, nondistended. No hepato-splenomegaly , or palpable masses. No guarding. MUSCULOSKELETAL: Extremities without clubbing, cyanosis, or edema. No joint tenderness, effusion, or edema noted. No calf tenderness. Negative Homans sign bilaterally. NEUROLOGICAL: Awake and alert. Cranial nerves II through XII intact. Motor and sensory grossly within normal limits. Five out of 5 muscle strength in all muscle groups. Normal speech. Laboratory Laboratory Tests Test 01/17/17 01/18/17 14:30 07:10 White Blood Count 9.5 Red Blood Count 4.47 Hemoglobin 13.8 Hematocrit 42.2 Mean Corpuscular Volume 94.4 Mean Corpuscular Hemoglobin 30.9 Mean Corpuscular Hemoglobin 32.7 Concent Red Cell Distribution Width 16.9 Platelet Count 284 Mean Platelet Volume 7.5 Neutrophils (%) (Auto) 65.6 Lymphocytes (%) (Auto) 20.2 Monocytes (%) (Auto) 8.3 Eosinophils (%) (Auto) 5.3 Basophils (%) (Auto) 0.6 Neutrophils # (Auto) 6.2 Lymphocytes # (Auto) 1.9 Monocytes # (Auto) 0.8 Eosinophils # (Auto) 0.5 Basophils # (Auto) 0.1 CBC Comment DIFF FINAL Differential Comment Urine Color YELLOW Urine Turbidity CLOUDY Urine pH 6.5 Urine Specific [place] 1.014 Urine Protein NEG Urine Glucose (UA) NEG Urine Ketones NEG Urine Occult Blood NEG Urine Nitrite NEG Urine Bilirubin NEG Urine Urobilinogen LESS THAN 2.0 Urine Leukocyte Esterase NEG Urine RBC 2 Urine WBC 1 Urine Squamous Epithelial 6 Cells Urine Amorphous Sediment RARE Microscopic Urinalysis Comment CULT NOT INDICATED Sodium Level 142 139 Potassium Level 4.1 4.1 Chloride Level 105 104 Carbon Dioxide Level 32.1 29.4 Anion Gap 5 6 Blood Urea Nitrogen 12 16 Creatinine 0.75 0.70 Estimat Glomerular Filtration 86 93 Rate Random Glucose 79 88 Calcium Level 9.3 8.7 Total Bilirubin 0.3 Aspartate Amino Transf 12 (AST/SGOT) Alanine Aminotransferase 19 (ALT/SGPT) Alkaline Phosphatase 73 Total Protein 6.8 Albumin 3.5 Salicylates Level 2.2 Urine Opiates Screen NEG Acetaminophen Level LESS THAN 2.0 Urine Barbiturates Screen NEG Urine Amphetamines Screen NEG Urine Benzodiazepines Screen NEG Urine Cocaine Screen NEG Urine Cannabinoids Screen NEG Ethyl Alcohol Level LESS THAN 3 Triglycerides Level 104 Cholesterol Level 144 LDL Cholesterol 67 HDL Cholesterol 56.0 Cholesterol/HDL Ratio 2.57 Result Diagram: 01/17/17 1430 01/18/17 0710 Assessment and Plan Assessment and Plan A/P - depression / suicidal ideation- management per psych. -hypothyroidism; resume levothyroxine- check TSH -medications need to be verified. thank you for the consult. Discussed Condition With the patient and RN. Sylvia Gutierres MD Jan 18, 2017 14:01
[2017-01-18 16:07] LABS: HEMOGLOBIN A1a 1.2 %; HEMOGLOBIN A1b 0.8 %; HEMOGLOBIN Ao 85.6 %; HEMOGLOBIN F 0.8 %; HEMOGLOBIN LA1C 1.9 %; HEMOGLOBIN P3 3.4 %
[2017-01-18] MEDS: buPROPion HCL 100 MG TAB PO SCH ×2 (16:43→21:00)
[2017-01-18] MEDS: GABAPENTIN 300 MG CAP PO SCH (16:43)
[2017-01-18 17:25] VITALS: BP 159/70; PULSE 76; RESP 17; TEMP 98.6; O2SAT 98
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
[2017-01-18] MEDS ORDERED: QUEtiapine FUMARATE 25 MG TAB PO SCH (21:00)
[2017-01-18] MEDS ORDERED: PRAZOSIN HCL 2 MG CAP PO SCH (21:00)
[2017-01-18] MEDS: PRAZOSIN HCL 2 MG CAP PO SCH (21:00)
[2017-01-18] MEDS: ACETAMINOPHEN 325 MG TAB PO PRN (21:26)
[2017-01-18] MEDS: diphenhydrAMINE HCL 50 MG CAP PO PRN (21:26)
[2017-01-19 05:31] VITALS: BP 107/60; PULSE 73; RESP 18; TEMP 98.1; O2SAT 99
[2017-01-19] MEDS ORDERED: LEVOTHYROXINE SODIUM 50 MCG TAB PO SCH (06:00)
[2017-01-19] MEDS: LEVOTHYROXINE SODIUM 50 MCG TAB PO SCH (06:22)
[2017-01-19] MEDS: buPROPion HCL 100 MG TAB PO SCH ×2 (08:55→21:21)
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
[2017-01-19] MEDS ORDERED: OLANZapine IM 10 MG VIAL IM ONE (09:15)
--- NOTE | 2017-01-19 15:40 | HHI.PYPN ---
Subjective Remarks Patient seen for follow-up, chart reviewed. Patient was seen by Dr. Hernandez for second opinion and upon interview patient was found to be agitated and yelling and verbally condescending toward staff which patient required olanzapine 10 mg IM for agitation. Patient was moved to the 2700 unit where she remained for the remainder of her hospitalization. Patient was later seen by feature writer in her room and found to be upset, tearful and slightly irritable. Patient recounts events of this morning stating that she was only asking for a phonebook to make a phone call and that her request was denied which she then reports having gotten upset. Nursing had reported the patient several 7 requesting benzodiazepines for anxiety despite her having hydroxyzine listed for anxiety when necessary. Patient was explained why she was under current regimen which included Wellbutrin to address her depressive symptoms attention deficit disorder and quetiapine for mood stabilization. Patient was upset that her gabapentin was discontinued by her primary medical team. Patient states that she will adhere to treatment and will likely discharge soon as she states she is no longer suicidal, denies homicidal ideations, denies any perceptual disturbances and plans to be discharged back home. Patient was reminded that she was put in the Trevino act for involuntary hospitalization due to her actions of [facility] a [address] endorsing suicidal ideations. Patient denies feeling suicidal now. Further observation and continue treatment was explained to patient and daughter to ensure a safe and stable discharge which she reluctantly acknowledged. Review of Systems Except as stated in HPI: all other systems reviewed are Neg Objective Alert: Yes Ona: Person (ox4) Mood: Other Affect: Other (irritable) Memory Intact: Comment (not tested. ) Hallucinations: Other (deneis any) Delusions: No Delusion Type: Other (denied) Suicidal: Ideation (deneis at present) Homicidal: Ideation (denied) Insight/Judgment Poor insight, poor impulse control, poor judgment Labs Test 01/19/17 07:32 Thyroid Stimulating Hormone 0.815 uIU/ML 3rd Gen Vitals/IOs Vital Signs Date Time Temp Pulse Resp B/P Pulse Ox O2 Delivery O2 Flow Rate FiO2 01/19/17 05:31 98.1 73 18 107/60 99 01/17/17 07:07 Room Air Intake and Output 01/18/17 01/18/17 01/18/17 07:59 15:59 23:59 Intake Total 240 ml Balance 240 ml Assessment & Plan Problem List: (1) Major depressive disorder, recurrent ICD Code: F33.9 Assessment & Plan Estimated LOS: 5-7 days. Patient is time continues to be irritable, with mood lability aggressive toward staff. Patient history of amphetamine use requesting benzodiazepines for anxiety which are not currently recommended for her due to her substance use. Patient moved to 2700 unit due to agitated behavior which she will remain for the remainder of her hospitalization. Course of treatment was discussed with patient which she acknowledged and states that she will now work with staff for stabilization and safety discharge. Patient to continue current treatment, with adjustment of medications as needed. Monitor for medication response and possible adverse drug reactions. Discharge planning in progress. Justification for Cont. Inpt. Patient at risk for further decompensation if it lower level of care Discharge Planning In progress Problem Qualifiers (1) Major depressive disorder, recurrent: Qualified Code: F33.1 - Moderate episode of recurrent major depressive disorder Gilmer Benitez MD Jan 19, 2017 15:40
[2017-01-19 18:14] VITALS: BP 123/69; PULSE 83; RESP 18; TEMP 98.1; O2SAT 98
[2017-01-19] MEDS ORDERED: QUEtiapine FUMARATE 100 MG TAB PO SCH (21:00)
[2017-01-19] MEDS: PRAZOSIN HCL 2 MG CAP PO SCH (21:20)
[2017-01-20 06:01] VITALS: BP 113/74; PULSE 72; RESP 17; TEMP 98.4; O2SAT 98
[2017-01-20] MEDS: LEVOTHYROXINE SODIUM 50 MCG TAB PO SCH (06:24)
[2017-01-20] MEDS: buPROPion HCL 100 MG TAB PO SCH ×2 (08:36→20:20)
[2017-01-20] MEDS: diphenhydrAMINE HCL 50 MG CAP PO PRN ×2 (14:50→20:20)
--- NOTE | 2017-01-20 15:14 | HHI.PYPN ---
Subjective Remarks Patient is to follow up, chart review. Patient found in the area reading a book , was able to engage in interview with story writer; noted to be calm and cooperative in interview. Patient states that yesterday she had an opportunity call her family to figure out "Social Security benefits issues"and apologizes for outburst and verbal aggression yesterday. Patient reports having spoken to counselor and was excited about the possibility of engaging in a substance rehabilitation program at [facility] upon discharge. Patient states that her mood has been "ok", and that she is future oriented stating wanting to accomplish some goals, such as continue her education, have a career, and start a family. She states that she is feeling better with her current medications and denies feeling depressed or having suicidal ideation. Patient requests to be discharged today and needing further observation and management was discussed which she reluctantly agreed with. Review of Systems Except as stated in HPI: all other systems reviewed are Neg Musculoskeletal: COMPLAINS OF: Back pain (Reports having chronic pain) Objective Alert: Yes [place]: Person (ox4) Mood: Other ("ok") Affect: Other (less irritable today) Memory Intact: Comment Hallucinations: Other (denies any) Delusions: No Delusion Type: Other (denied) Suicidal: Ideation (denies at present) Homicidal: Ideation (denied) Insight/Judgment limited insight, impulse control and judgment Remarks Patient appears stated age, in casual clothing, fair hygiene and grooming, speech normal rate tone and prosody, noted to be more calm and cooperative in interview today. Thought process was linear and goal directed, thought content noted to be somewhat perseverative on discharge but was agreeable to further observation and treatment. Vitals/IOs Vital Signs Date Time Temp Pulse Resp B/P Pulse Ox O2 Delivery O2 Flow Rate FiO2 01/20/17 06:01 98.4 72 17 113/74 98 01/17/17 07:07 Room Air Assessment & Plan Problem List: (1) Major depressive disorder, recurrent ICD Code: F33.9 Assessment & Plan Estimated LOS: 5-7 days. Patient at this time to be more cooperative and less irritable today. Patient to be compliant with treatment denies any adverse drug reactions; tolerating well. Patient denies any depressive symptoms at this time denies any suicidality was also perseverative on discharge today which is unclear whether patient's denial of depressive symptoms is related to her wish to be discharged today. Plan to continue for further observation and management with the patient which she reluctantly agreed to. Patient agreed to go to rehabilitation program for substance use and SMA which will be coordinated by team along with safe discharge planning. Patient to continue bupropion 100mg by mouth twice a day, quetiapine increased to 150 mg by mouth at bedtime, increase prazosin to 2 mg by mouth at bedtime, start gabapentin 300 mg by mouth 3 times a day. Both of her medication response and possible adverse drug reactions. Discharge planning in progress Justification for Cont. Inpt. Patient risk for decompensation and lower level of care Discharge Planning In progress Problem Qualifiers (1) Major depressive disorder, recurrent: Qualified Code: F33.1 - Moderate episode of recurrent major depressive disorder Gilmer Benitez MD Jan 20, 2017 15:14
[2017-01-20] MEDS ORDERED: PILL SPLITTER OTHER PRN (15:30)
--- NOTE | 2017-01-20 17:07 | EKG ---
Date Performed: 01/19/2017 Time Performed: 09:57:32 PTAGE: 41 years EKG: Technically poor tracing, with baseline wandering artifact. RsR prime pattern. ABNORMAL ECG NO PREVIOUS TRACING DOCTOR: Kwasi Lyman Interpretating Date/Time 01/20/2017 17:06:08
[2017-01-20] MEDS: GABAPENTIN 300 MG CAP PO SCH (17:34)
[2017-01-20 18:21] VITALS: BP 170/84; PULSE 80; RESP 20
[2017-01-20] MEDS: PRAZOSIN HCL 2 MG CAP PO SCH (20:19)
[2017-01-20] MEDS: QUEtiapine FUMARATE 100 MG TAB PO SCH (20:20)
[2017-01-21 05:57] VITALS: BP 127/82; PULSE 77; RESP 16; TEMP 98; O2SAT 99
[2017-01-21] MEDS: LEVOTHYROXINE SODIUM 50 MCG TAB PO SCH (06:02)
[2017-01-21] MEDS: GABAPENTIN 300 MG CAP PO SCH ×3 (08:19→16:52)
[2017-01-21] MEDS: buPROPion HCL 100 MG TAB PO SCH ×2 (08:19→20:34)
--- NOTE | 2017-01-21 13:38 | HHI.PYPN ---
Subjective Remarks Pt seen and discussed with staff. She requests discharge today stating that Dr. Benitez is doing "nothing for me" and she has things to do. Pt reports that the court is " on" to her and she is facing alf time if she cannot maintain sobriety. She reports recent relapse prior to admission. She becomes agitated when told that she is under involuntary hospitalization order and that discharge planning so that she may enter substance abuse tx at [facility] is in progress. Pt makes verbal threats and accuses MD and RN of conspiring against her. Attempts to explain treatment plan to pt are futile and she cuts off interview. Objective Alert: Yes Elroy: Person (ox4) Mood: Agitated, Angry, Other ("ok") Affect: Other (Congruent) Memory Intact: Comment (no deficits) Hallucinations: Other (none) Delusions: No Delusion Type: Other (none) Suicidal: Ideation (denies at present) Homicidal: Ideation (denied) Insight/Judgment poor Remarks poor impulse control Vitals/IOs Vital Signs Date Time Temp Pulse Resp B/P Pulse Ox O2 Delivery O2 Flow Rate FiO2 01/21/17 05:57 98.0 77 16 127/82 99 01/17/17 07:07 Room Air Assessment & Plan Problem List: (1) Major depressive disorder, recurrent ICD Code: F33.9 (2) Amphetamine substance use disorder, severe, in controlled environment ICD Code: F15.20 Assessment & Plan Continue current tx plan. Strongly suspect pt's desire for discharge is related to substance disorder. Will benefit from substance abuse treatment. Estimated LOS: days Justification for Cont. Inpt. risk of decompensation Problem Qualifiers (1) Major depressive disorder, recurrent: Qualified Code: F33.1 - Moderate episode of recurrent major depressive disorder Carolynn Conway MD Jan 21, 2017 13:38
[2017-01-21] MEDS: diphenhydrAMINE HCL 50 MG CAP PO PRN ×3 (15:30)
[2017-01-21] MEDS: ACETAMINOPHEN 325 MG TAB PO PRN (15:31)
[2017-01-21 18:21] VITALS: BP 130/82; PULSE 76; RESP 18; TEMP 98.4; O2SAT 100
[2017-01-21] MEDS: QUEtiapine FUMARATE 100 MG TAB PO SCH (20:34)
[2017-01-21] MEDS: PRAZOSIN HCL 2 MG CAP PO SCH (20:34)
[2017-01-22] MEDS: LEVOTHYROXINE SODIUM 50 MCG TAB PO SCH (05:12)
[2017-01-22 06:37] VITALS: BP 137/63; PULSE 81; RESP 18; TEMP 97.9; O2SAT 100
[2017-01-22] MEDS: GABAPENTIN 300 MG CAP PO SCH ×3 (09:44→17:42)
[2017-01-22] MEDS: buPROPion HCL 100 MG TAB PO SCH ×2 (09:44→20:20)
--- NOTE | 2017-01-22 11:05 | HHI.PYPN ---
Subjective Remarks Pt seen and discussed with staff. Pt has been oppositional and irritable on unit. Very easily agitated with poor impulse control. Limited insight. Pt states that seroquel has been causing her family problems for generations and she will no longer take it. She states that it is interfering with her kinetic energy and fusing her brain synapses. Objective Alert: Yes Cameron: Person (ox4) Mood: Agitated, Angry Affect: Labile, Other (Congruent) Memory Intact: Comment (fair) Hallucinations: Other (none) Delusions: Yes Delusion Type: Other (bizarre) Suicidal: Ideation (denies at present) Homicidal: Ideation (denied) Insight/Judgment poor Vitals/IOs Vital Signs Date Time Temp Pulse Resp B/P Pulse Ox O2 Delivery O2 Flow Rate FiO2 01/22/17 06:37 97.9 81 18 137/63 100 Assessment & Plan Problem List: (1) Major depressive disorder, recurrent ICD Code: F33.9 (2) Amphetamine substance use disorder, severe, in controlled environment ICD Code: F15.20 Assessment & Plan Continue current tx plan. Estimated LOS: days Justification for Cont. Inpt. agitation, impairments in safety Problem Qualifiers (1) Major depressive disorder, recurrent: Qualified Code: F33.1 - Moderate episode of recurrent major depressive disorder Carolynn Conway MD Jan 22, 2017 11:05
[2017-01-22 15:52] VITALS: BP 141/94; PULSE 80; RESP 17; TEMP 98.7; O2SAT 100
[2017-01-22] MEDS: PRAZOSIN HCL 2 MG CAP PO SCH (20:20)
[2017-01-22] MEDS: QUEtiapine FUMARATE 100 MG TAB PO SCH (20:22)
[2017-01-22] MEDS: diphenhydrAMINE HCL 50 MG CAP PO PRN (20:23)
[2017-01-23] MEDS ORDERED: OLANZapine IM 10 MG VIAL IM ONE ×2 (00:16→01:15)
[2017-01-23] MEDS: LEVOTHYROXINE SODIUM 50 MCG TAB PO SCH (06:00)
[2017-01-23] MEDS: buPROPion HCL 100 MG TAB PO SCH (08:45)
[2017-01-23] MEDS: GABAPENTIN 300 MG CAP PO SCH (08:45)
[2017-01-23] MEDS ORDERED: PRAZ2 PO (12:45)
[2017-01-23] MEDS ORDERED: BUPR100T4 PO (12:45)
[2017-01-23] MEDS ORDERED: NEUR300C PO (12:45)
[2017-01-23] MEDS ORDERED: LEVO.05 PO (12:45)
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
== END 2017-01-23 14:00 | disposition home or self-care (01) | DRG 885 ==
LOC: NEDAMB 18:28 → NEDA 01-17 16:43 → H260 01-17 21:00 → H270 01-19 10:41
PROVIDERS: ADMIT Student in an Organized Health Care Education/Training Program; ATTEND Student in an Organized Health Care Education/Training Program
DX: F33.1 Major depressive disorder, recurrent, moderate (principal); R45.851 Suicidal ideations; F15.90 Other stimulant use, unspecified, uncomplicated; E03.9 Hypothyroidism, unspecified; J45.909 Unspecified asthma, uncomplicated; Z91.5 Personal history of self-harm; Z81.8 Family history of other mental and behavioral disorders
CPT/HCPCS: 80048; 80053; 80061; 80307; 81001; 83036; 84443; 85025; 93005; 99285; Q0163